=== PATIENT | male | born 1950 | race Caucasian/White ===

== ENCOUNTER 2018-06-12 11:20 | Inpatient (IN) ==
[2018-06-12] MEDS ORDERED: ONDANSETRON 4 MG/2 ML VIAL IV PRN (12:42)
[2018-06-12] MEDS ORDERED: DEXTROSE 50% 25 GM/50 ML SYRINGE IV PRN (12:42)
[2018-06-12] MEDS ORDERED: GLUCAGON 1 MG VIAL IM PRN (12:42)
[2018-06-12] MEDS ORDERED: ACETAMINOPHEN 325 MG TABLET PO PRN (12:42)
[2018-06-12 13:37] LABS: Basophils # 0.1 10*3/uL (0.0-0.2); Basophils % 1.2 % (0.0-0.8); Eosinophils # 0.3 10*3/uL (0.0-0.87); Hematocrit 42.7 VOL% (42.0-52.0); Hemoglobin 14.6 GM/DL (14.0-18.0); Immature Granulocytes % 0.2 %; Immature Granulocytes Absolute 0.02 #; Lymphocytes # 1.7 10*3/uL (1.4-4.0); Lymphocytes % 19.7 % (21.2-54.2); Mean Corpuscular HGB Conc 34.2 GM/DL (32-36); Mean Corpuscular Hemoglobin 31 PG (27-34); Mean Corpuscular Volume 90.7 FL (87-102); Mean Platelet Volume 10.6 FL (9.6-12.0); Monocytes # 0.8 10*3/uL (0.11-0.8); Monocytes % 8.7 % (1.7-12.7); Neutrophils # 5.7 10*3/uL (1.4-7.4); Neutrophils % 66.2 % (38.7-73.9); Platelet Count 219 T/CUMM (130-400); Red Blood Count 4.71 MC/CUMM (3.8-5.5); Red Cell Distribution Width 13.1 % (9.3-17.3); White Blood Count 8.6 T/CUMM (4-12)
[2018-06-12 13:48] LABS: PT Patient Result 10.4 SECS
[2018-06-12 14:06] LABS: Albumin 3.5 G/DL (3.4-5.0); Calcium 9.2 MG/DL (8.5-10.1); Potassium 3.5 MMOL/L (3.5-5.1); Total Protein 8.6 G/DL (6.4-8.3)
[2018-06-12 14:08] LABS: Troponin I < 0.015 NG/ML (0.00-0.045)
[2018-06-12] MEDS ORDERED: MAGNESIUM SULF RIDER 2 GM in PREMIX 1 EACH IV PRN (15:44)
[2018-06-12] MEDS ORDERED: MAGNESIUM SULF RIDER 4 GM in PREMIX 1 EACH IV PRN (15:44)
[2018-06-12] MEDS ORDERED: DILTIAZEM 50 MG/10 ML VIAL IV ONE (16:41)
[2018-06-12] MEDS ORDERED: dilTIAZem Drip 125 MG/125 ML PREMIX IV SCH (17:00)
[2018-06-12 17:05] LABS: Troponin I < 0.015 NG/ML (0.00-0.045)
[2018-06-12] MEDS: INSULIN LISPRO 100 UNIT/ML SUBCUT SCH ×2 (17:24→21:15)
[2018-06-12] MEDS ORDERED: DILTIAZEM 25 MG/5 ML VIAL IV ONE (17:30)
[2018-06-12 20:10] LABS: Troponin I < 0.015 NG/ML (0.00-0.045)
[2018-06-12] MEDS ORDERED: glyBURIDE/METFORMIN 2.5-500 MG TABLET PO SCH (21:00)
[2018-06-12] MEDS ORDERED: DILTIAZEM CD 120 MG CAPSULE PO SCH (21:00)
[2018-06-12] MEDS ORDERED: PROBENECID/COLCHICINE 500-0.5 MG TABLET PO SCH (21:00)
[2018-06-12] MEDS: ENOXAPARIN 40 MG/0.4 ML SYRINGE SUBCUT SCH (21:14)
[2018-06-12] MEDS: COLCHICINE 0.6 MG TABLET PO SCH (21:18)
[2018-06-12] MEDS: metFORMIN 500 MG TABLET PO SCH (21:18)
[2018-06-12] MEDS: PROBENECID 500 MG TABLET PO SCH (21:18)
[2018-06-12] MEDS: METOPROLOL TARTRATE 50 MG TABLET PO SCH (21:19)
[2018-06-12] MEDS: glyBURIDE 5 MG TABLET PO SCH (21:19)
[2018-06-12] MEDS: DOCUSATE SODIUM 100 MG CAPSULE PO SCH (21:21)
[2018-06-13 04:46] LABS: Basophils # 0.1 10*3/uL (0.0-0.2); Basophils % 0.8 % (0.0-0.8); Eosinophils # 0.4 10*3/uL (0.0-0.87); Eosinophils % 4.3 % (0.00-10.9); Hematocrit 38.2 VOL% (42.0-52.0); Hemoglobin 13.2 GM/DL (14.0-18.0); Immature Granulocytes % 0.4 %; Immature Granulocytes Absolute 0.04 #; Lymphocytes % 21.1 % (21.2-54.2); Mean Corpuscular HGB Conc 34.6 GM/DL (32-36); Mean Corpuscular Hemoglobin 31 PG (27-34); Mean Corpuscular Volume 90.7 FL (87-102); Mean Platelet Volume 10.6 FL (9.6-12.0); Monocytes # 0.9 10*3/uL (0.11-0.8); Monocytes % 9.2 % (1.7-12.7); Neutrophils # 6.2 10*3/uL (1.4-7.4); Neutrophils % 64.2 % (38.7-73.9); Platelet Count 206 T/CUMM (130-400); Red Blood Count 4.21 MC/CUMM (3.8-5.5); Red Cell Distribution Width 13.1 % (9.3-17.3); White Blood Count 9.6 T/CUMM (4-12)
[2018-06-13 05:18] LABS: Calcium 8.7 MG/DL (8.5-10.1); Potassium 3.3 MMOL/L (3.5-5.1)
[2018-06-13 05:21] LABS: Risk Ratio 4.48
[2018-06-13] MEDS: glyBURIDE 5 MG TABLET PO SCH ×2 (08:40→21:24)
[2018-06-13] MEDS: hydroCHLOROthiazide 12.5 MG CAPSULE PO SCH (08:40)
[2018-06-13] MEDS: amLODIPine 5 MG TABLET PO SCH (08:40)
[2018-06-13] MEDS: COLCHICINE 0.6 MG TABLET PO SCH ×2 (08:40→21:24)
[2018-06-13] MEDS: LOSARTAN 50 MG TABLET PO SCH (08:40)
[2018-06-13] MEDS: metFORMIN 500 MG TABLET PO SCH ×2 (08:40→21:23)
[2018-06-13] MEDS: METOPROLOL TARTRATE 50 MG TABLET PO SCH ×2 (08:41→21:23)
[2018-06-13] MEDS: DOCUSATE SODIUM 100 MG CAPSULE PO SCH ×2 (08:41→21:35)
[2018-06-13] MEDS: POTASSIUM CHLORIDE 20 MEQ TABLET PO PRN ×3 (08:41→12:37)
[2018-06-13] MEDS: PANTOPRAZOLE 40 MG TABLET PO SCH (08:41)
[2018-06-13] MEDS: PROBENECID 500 MG TABLET PO SCH ×2 (08:42→21:23)
[2018-06-13] MEDS: INSULIN GLARGINE 100 UNIT/ML SUBCUT SCH (08:43)
[2018-06-13] MEDS: INSULIN LISPRO 100 UNIT/ML SUBCUT SCH ×4 (08:44→21:33)
[2018-06-13] MEDS: traMADol 50 MG TABLET PO PRN ×2 (08:50→18:17)
[2018-06-13] MEDS ORDERED: amLODIPine 10 MG TABLET PO SCH (09:00)
[2018-06-13] MEDS: GABAPENTIN 300 MG CAPSULE PO SCH ×2 (10:45→21:24)
[2018-06-13] MEDS: DILTIAZEM CD 120 MG CAPSULE PO SCH (14:44)
[2018-06-13] MEDS: dilTIAZem Drip 125 MG/125 ML PREMIX IV SCH (21:22)
[2018-06-13] MEDS: ENOXAPARIN 40 MG/0.4 ML SYRINGE SUBCUT SCH (21:25)
[2018-06-14] MEDS: traMADol 50 MG TABLET PO PRN ×2 (01:47→10:17)
[2018-06-14 05:55] LABS: Basophils # 0.1 10*3/uL (0.0-0.2); Basophils % 1.1 % (0.0-0.8); Eosinophils # 0.6 10*3/uL (0.0-0.87); Eosinophils % 7.9 % (0.00-10.9); Hemoglobin 13.3 GM/DL (14.0-18.0); Immature Granulocytes % 0.3 %; Immature Granulocytes Absolute 0.02 #; Lymphocytes # 2.1 10*3/uL (1.4-4.0); Lymphocytes % 27.9 % (21.2-54.2); Mean Corpuscular HGB Conc 34.1 GM/DL (32-36); Mean Corpuscular Hemoglobin 31 PG (27-34); Mean Corpuscular Volume 92.2 FL (87-102); Mean Platelet Volume 10.3 FL (9.6-12.0); Monocytes # 0.8 10*3/uL (0.11-0.8); Monocytes % 10.9 % (1.7-12.7); Neutrophils # 3.9 10*3/uL (1.4-7.4); Neutrophils % 51.9 % (38.7-73.9); Platelet Count 193 T/CUMM (130-400); Red Blood Count 4.23 MC/CUMM (3.8-5.5); Red Cell Distribution Width 13.2 % (9.3-17.3); White Blood Count 7.6 T/CUMM (4-12)
[2018-06-14 06:11] LABS: Calcium 8.7 MG/DL (8.5-10.1); Osmolality,Calculated 270.2 MOS/KG (273-304); Potassium 3.7 MMOL/L (3.5-5.1)
[2018-06-14] MEDS ORDERED: ASPIRIN EC 81 MG TABLET PO SCH (09:00)
[2018-06-14] MEDS: INSULIN LISPRO 100 UNIT/ML SUBCUT SCH ×3 (10:06→17:34)
[2018-06-14] MEDS: LOSARTAN 50 MG TABLET PO SCH (10:07)
[2018-06-14] MEDS: DILTIAZEM CD 120 MG CAPSULE PO SCH (10:08)
[2018-06-14] MEDS: GABAPENTIN 300 MG CAPSULE PO SCH (10:08)
[2018-06-14] MEDS: hydroCHLOROthiazide 12.5 MG CAPSULE PO SCH (10:08)
[2018-06-14] MEDS: COLCHICINE 0.6 MG TABLET PO SCH (10:08)
[2018-06-14] MEDS: PROBENECID 500 MG TABLET PO SCH (10:08)
[2018-06-14] MEDS: metFORMIN 500 MG TABLET PO SCH (10:08)
[2018-06-14] MEDS: METOPROLOL TARTRATE 50 MG TABLET PO SCH (10:09)
[2018-06-14] MEDS: PANTOPRAZOLE 40 MG TABLET PO SCH (10:09)
[2018-06-14] MEDS: glyBURIDE 5 MG TABLET PO SCH (10:09)
[2018-06-14] MEDS: DOCUSATE SODIUM 100 MG CAPSULE PO SCH (10:10)
[2018-06-14] MEDS: INSULIN GLARGINE 100 UNIT/ML SUBCUT SCH (10:10)
[2018-06-14] MEDS: amLODIPine 5 MG TABLET PO SCH (10:45)
[2018-06-14 12:03] VITALS: BP 146/82
== END 2018-06-14 16:45 | disposition home or self-care (01) | DRG 310 ==
LOC: N.TELES
PROVIDERS: ADMIT Family Medicine; ATTEND Family Medicine

== ENCOUNTER 2020-05-25 05:38 | Inpatient (IN) ==
[2020-05-18 11:32] LABS: Basophils # 0.1 10*3/uL (0.0-0.2); Basophils % 1.2 % (0.0-0.8); Eosinophils # 0.6 10*3/uL (0.0-0.87); Eosinophils % 5.7 % (0.00-10.9); Hemoglobin 13.5 GM/DL (14.0-18.0); Immature Granulocytes % 0.4 %; Immature Granulocytes Absolute 0.04 #; Lymphocytes # 2.8 10*3/uL (1.4-4.0); Lymphocytes % 29.3 % (21.2-54.2); Mean Corpuscular HGB Conc 34.6 GM/DL (32-36); Mean Corpuscular Volume 93.3 FL (87-102); Mean Platelet Volume 9.9 FL (9.6-12.0); Monocytes % 12.3 % (1.7-12.7); Neutrophils % 51.1 % (38.7-73.9); Platelet Count 240 T/CUMM (130-400); Red Blood Count 4.18 MC/CUMM (3.8-5.5); Red Cell Distribution Width 13.8 % (9.3-17.3); White Blood Count 9.6 T/CUMM (4-12)
[2020-05-18 11:43] LABS: PT Patient Result 10.3 SECS (9.8-11.9); Partial Thromboplastin Time 28.4 SECS (23.9-33.8)
[2020-05-18 11:46] LABS: Albumin 3.3 G/DL (3.4-5.0); Bilirubin,Total 0.8 MG/DL (0.2-1.0); Calcium 8.9 MG/DL (8.5-10.1); Osmolality,Calculated 280.5 MOS/KG (273-304); Total Protein 7.5 G/DL (6.4-8.3)
[2020-05-18 12:12] LABS: Bilirubin,Urine Negative (Negative); Blood, Urine Negative (Negative); Glucose,Urine (UA) Negative (Negative); Ketones,Urine Negative (Negative); Nitrite,Urine Negative (Negative); Protein,Urine 30 MG/DL; RBC,Urine 1 /HPF (0-4); Squamous Epithelial Cell,Urine Occasional /HPF (0-10); Urine Appearance CLEAR (Clear); Urine Color Yellow (Yellow); Urine Specific Gravity 1.011 (1.001-1.035); Urine Urobilinogen < 2.0 EU/DL (0.2-1.0); WBC,Urine 1 /HPF (0-6)
[2020-05-25] MEDS ORDERED: VANCOMYCIN INJ 1,000 MG in SODIUM CHLORIDE 0.9% 250 ML IV ONE (06:30)
[2020-05-25] MEDS ORDERED: ceFAZolin 1,000 MG in SYRINGE 1 EACH IV ONE (06:30)
[2020-05-25] MEDS ORDERED: LIDOCAINE 2% 5 ML VIAL ONE (07:14)
[2020-05-25] MEDS ORDERED: ONDANSETRON 4 MG/2 ML VIAL ONE (07:14)
[2020-05-25] MEDS ORDERED: BUPIVACAINE SPINAL 0.75% 2 ML AMP SPINAL ONE (07:14)
[2020-05-25] MEDS ORDERED: PHENYLEPHRINE 1 MG/10 ML SYRINGE IV ONE ×3 (07:14→08:45)
[2020-05-25] MEDS ORDERED: fentaNYL 250 MCG/5 ML VIAL ONE (07:15)
[2020-05-25] MEDS ORDERED: MIDAZOLAM 2 MG/2 ML VIAL ONE (07:15)
[2020-05-25] MEDS ORDERED: fentaNYL 100 MCG/2 ML VIAL ONE (07:17)
[2020-05-25] MEDS ORDERED: LACTATED RINGERS 1,000 ML IV SCH (07:30)
[2020-05-25] MEDS ORDERED: ALBUTEROL 2.5 MG/3 ML NEB RESP TX PRN (07:49)
[2020-05-25] MEDS ORDERED: HYOSCYAMINE 0.125 MG TABLET SL PRN (07:49)
[2020-05-25] MEDS ORDERED: ONDANSETRON 4 MG/2 ML VIAL IV PRN ×2 (07:53→12:04)
[2020-05-25] MEDS ORDERED: MAGNESIUM HYDROXIDE SUSP 30 ML UDCUP PO PRN (07:53)
[2020-05-25] MEDS ORDERED: MORPHINE 4 MG/1 ML VIAL IV PRN (07:53)
[2020-05-25] MEDS ORDERED: diphenhydrAMINE CAP 25 MG CAPSULE PO PRN ×2 (07:53)
[2020-05-25] MEDS ORDERED: DEXTROSE 50% 25 GM/50 ML VIAL IV PRN (07:53)
[2020-05-25] MEDS ORDERED: GLUCAGON 1 MG VIAL IM PRN (07:53)
[2020-05-25] MEDS ORDERED: oxyCODONE/ACETAMINOPHEN 5-325 MG TABLET PO PRN (07:56)
[2020-05-25] MEDS ORDERED: TRANEXAMIC ACID 1,000 MG/10 ML VIAL ONE (08:17)
[2020-05-25] MEDS ORDERED: propofoL 200 MG/20 ML VIAL IV ONE (08:33)
[2020-05-25] MEDS ORDERED: BACITRACIN OINT 0.9 GM PACK TOP ONE (08:35)
[2020-05-25] MEDS ORDERED: ROPIVACAINE 0.5% 30 ML VIAL ONE (09:04)
[2020-05-25] MEDS ORDERED: GLYCOPYRROLATE 0.4 MG/2 ML VIAL ONE (11:43)
[2020-05-25] MEDS: KETOROLAC 30 MG/1 ML VIAL IV SCH ×3 (13:04→21:20)
[2020-05-25] MEDS ORDERED: MEPERIDINE 25 MG/1 ML VIAL IV PRN (13:15)
[2020-05-25] MEDS: LACTATED RINGERS 1,000 ML IV SCH ×2 (14:47→15:29)
[2020-05-25] MEDS: INSULIN LISPRO 100 UNIT/ML SUBCUT SCH ×3 (14:47→21:19)
[2020-05-25] MEDS: ceFAZolin 2,000 MG in PREMIX 1 EACH IV SCH ×2 (14:48→21:21)
[2020-05-25] MEDS: MORPHINE 4 MG/1 ML VIAL IV PRN (15:29)
[2020-05-25] MEDS: DOCUSATE/SENNA 50-8.6 MG TABLET PO SCH (15:29)
[2020-05-25] MEDS: INSULIN NPH/REGULAR 70/30 100 UNIT/ML SUBCUT SCH (16:32)
[2020-05-25] MEDS ORDERED: PROBENECID COLCHICINE PO PRN (21:00)
[2020-05-25] MEDS ORDERED: ALPRAZolam 0.5 MG TABLET PO PRN (21:00)
[2020-05-25] MEDS: METOPROLOL TARTRATE 100 MG TABLET PO SCH (21:21)
[2020-05-25] MEDS: GABAPENTIN 300 MG CAPSULE PO SCH (21:21)
[2020-05-26] MEDS: KETOROLAC 30 MG/1 ML VIAL IV SCH (02:01)
[2020-05-26] MEDS: FONDAPARINUX 2.5 MG/0.5 ML SYRINGE SUBCUT SCH (04:47)
[2020-05-26 05:18] LABS: Basophils # 0.1 10*3/uL (0.0-0.2); Basophils % 0.6 % (0.0-0.8); Eosinophils # 0.4 10*3/uL (0.0-0.87); Eosinophils % 3.5 % (0.00-10.9); Hematocrit 33.4 VOL% (42.0-52.0); Hemoglobin 11.5 GM/DL (14.0-18.0); Immature Granulocytes % 0.5 %; Immature Granulocytes Absolute 0.06 #; Lymphocytes # 1.8 10*3/uL (1.4-4.0); Lymphocytes % 14.4 % (21.2-54.2); Mean Corpuscular HGB Conc 34.4 GM/DL (32-36); Mean Corpuscular Volume 93.8 FL (87-102); Mean Platelet Volume 10.2 FL (9.6-12.0); Monocytes % 11.1 % (1.7-12.7); Neutrophils % 69.9 % (38.7-73.9); Platelet Count 182 T/CUMM (130-400); Red Blood Count 3.56 MC/CUMM (3.8-5.5); Red Cell Distribution Width 13.5 % (9.3-17.3); White Blood Count 12.5 T/CUMM (4-12)
[2020-05-26 05:35] LABS: Calcium 8.6 MG/DL (8.5-10.1)
[2020-05-26] MEDS: MORPHINE 4 MG/1 ML VIAL IV PRN ×3 (08:38→14:25)
[2020-05-26] MEDS: INSULIN LISPRO 100 UNIT/ML SUBCUT SCH ×4 (08:44→20:40)
[2020-05-26] MEDS: INSULIN NPH/REGULAR 70/30 100 UNIT/ML SUBCUT SCH ×2 (08:44→16:51)
[2020-05-26] MEDS: SPIRONOLACTONE 25 MG TABLET PO SCH (08:46)
[2020-05-26] MEDS: GLIMEPIRIDE 4 MG TABLET PO SCH (08:46)
[2020-05-26] MEDS: ALUMINUM/MAGNES/SIMETH MAX STR 30 ML UDCUP PO SCH (08:47)
[2020-05-26] MEDS: LOSARTAN 50 MG TABLET PO SCH (08:47)
[2020-05-26] MEDS: METOPROLOL TARTRATE 100 MG TABLET PO SCH ×2 (08:47→20:41)
[2020-05-26] MEDS: GABAPENTIN 300 MG CAPSULE PO SCH ×2 (08:47→20:41)
[2020-05-26] MEDS: hydroCHLOROthiazide 25 MG TABLET PO SCH (08:47)
[2020-05-26] MEDS: DOCUSATE/SENNA 50-8.6 MG TABLET PO SCH ×2 (08:48→08:52)
[2020-05-26] MEDS: amLODIPine 10 MG TABLET PO SCH (08:57)
[2020-05-27] MEDS: FONDAPARINUX 2.5 MG/0.5 ML SYRINGE SUBCUT SCH (05:50)
[2020-05-27 06:20] LABS: Basophils % 0.3 % (0.0-0.8); Eosinophils # 0.1 10*3/uL (0.0-0.87); Eosinophils % 0.8 % (0.00-10.9); Hematocrit 30.9 VOL% (42.0-52.0); Hemoglobin 10.8 GM/DL (14.0-18.0); Immature Granulocytes % 0.5 %; Immature Granulocytes Absolute 0.06 #; Lymphocytes # 1.4 10*3/uL (1.4-4.0); Lymphocytes % 11.1 % (21.2-54.2); Mean Corpuscular Volume 92.8 FL (87-102); Mean Platelet Volume 10.3 FL (9.6-12.0); Monocytes % 11.7 % (1.7-12.7); Neutrophils % 75.6 % (38.7-73.9); Platelet Count 171 T/CUMM (130-400); Red Blood Count 3.33 MC/CUMM (3.8-5.5); Red Cell Distribution Width 13.2 % (9.3-17.3); White Blood Count 12.8 T/CUMM (4-12)
[2020-05-27] MEDS: oxyCODONE/ACETAMINOPHEN 5-325 MG TABLET PO PRN ×2 (08:57→13:26)
[2020-05-27] MEDS: INSULIN LISPRO 100 UNIT/ML SUBCUT SCH ×2 (08:58→12:59)
[2020-05-27] MEDS: INSULIN NPH/REGULAR 70/30 100 UNIT/ML SUBCUT SCH (08:59)
[2020-05-27] MEDS: METOPROLOL TARTRATE 100 MG TABLET PO SCH (09:00)
[2020-05-27] MEDS: GLIMEPIRIDE 4 MG TABLET PO SCH (09:00)
[2020-05-27] MEDS: LOSARTAN 50 MG TABLET PO SCH (09:00)
[2020-05-27] MEDS: SPIRONOLACTONE 25 MG TABLET PO SCH (09:00)
[2020-05-27] MEDS: ALUMINUM/MAGNES/SIMETH MAX STR 30 ML UDCUP PO SCH (09:00)
[2020-05-27] MEDS: hydroCHLOROthiazide 25 MG TABLET PO SCH (09:00)
[2020-05-27] MEDS: amLODIPine 10 MG TABLET PO SCH (09:00)
[2020-05-27] MEDS: DOCUSATE/SENNA 50-8.6 MG TABLET PO SCH (09:00)
[2020-05-27] MEDS: GABAPENTIN 300 MG CAPSULE PO SCH (09:00)
[2020-05-27] MEDS: LACTATED RINGERS 1,000 ML IV SCH (11:09)
[2020-05-27 11:57] VITALS: BP 110/61
== END 2020-05-27 14:30 | disposition home health service (06) | DRG 470 ==
LOC: N.OR 05:38 → N.SDSINP 05:40 → N.3E 13:51
PROVIDERS: ADMIT Orthopaedic Surgery; ATTEND Orthopaedic Surgery